=== PATIENT | male | born 1955 | race Caucasian/White ===

== ENCOUNTER → 2018-12-04 12:59 | Outpatient (CLI) | payer OTHER, SELFPAY ==
[2018-12-04 13:28] LABS: Bacteria Urine None Seen; RBC Urine None Seen (0-5/HPF); WBC Urine None Seen (0-5/HPF)
[2018-12-04 13:35] LABS: Add Manual Diff / Slide Review NO; Basophils Absolute Auto 100 /uL (0-100); Basophils Percent Auto 0.8 % (0-2); Eosinophils Absolute Auto 100 /uL (0-450); Eosinophils Percent Auto 1.7 % (2-4); Hematocrit 45.5 % (41-53); Hemoglobin 16.1 g/dL (13.5-17.5); Lymphocytes Absolute Auto 1200 /uL (1100-4500); Lymphocytes Percent Auto 15.5 % (25-40); Mean Corpuscular HGB Conc 35.3 % (30-36); Mean Corpuscular Hemoglobin 34.1 PG (26-34); Mean Corpuscular Volume 96.7 fL (80-100); Monocytes Absolute Auto 800 /uL (0-900); Monocytes Percent Auto 10.4 % (3-14); Neutrophils Absolute Auto 5600 /uL (1500-7000); Neutrophils Percent Auto 71.6 % (50-75); Platelet Count 265 X10^3/uL (150-400); Red Blood Cell Count 4.71 X10^6/uL (4.5-5.9); Red Cell Distribution Width 12.6 % (11.6-14.8); White Blood Cell Count 7.9 X10^3/uL (4.5-11.0)
[2018-12-04 13:44] LABS: Hemoglobin A1C% w Est Avg Glu 5.2 % (4.0-6.0)
[2018-12-04 14:13] LABS: Appearance Urine UA CLEAR; Bilirubin Urine UA NEGATIVE (NEGATIVE); Color Urine UA YELLOW; Glucose Urine UA NEGATIVE (Negative); Ketones Urine UA 1+ (NEGATIVE); Leukocyte Esterase Urine UA NEGATIVE (NEGATIVE); Nitrite Urine UA NEGATIVE (Negative); Occult Blood Urine UA NEGATIVE (Negative); Protein Urine UA NEGATIVE (Negative); pH Urine UA 6.5 (4.5-8.0)
[2018-12-04 14:15] LABS: BUN Creatinine Ratio 22.5 (6-22); Blood Urea Nitrogen 18 mg/dL (9-20); Calcium 10.5 mg/dL (8.4-10.2); Carbon Dioxide 27 mmol/L (22-32); Chloride 100 mmol/L (98-107); Estimated Glomerular Filt Rate > 60.0 mL/min (>60); Glucose 105 mg/dL (80-110); HEMOLYSIS 19 (0-50); Potassium 4.5 mmol/L (3.4-5.1); Sodium 139 mmol/L (137-145)
[2018-12-04 14:23] LABS: Culture Indicated Urine Cult Not Indicated
== END ==
PROVIDERS: Physician Assistant; Visit Provider Orthopaedic Surgery
DX: Z01.818 Encounter for other preprocedural examination (principal); Z01.812 Encounter for preprocedural laboratory examination; N39.9 Disorder of urinary system, unspecified; Z13.1 Encounter for screening for diabetes mellitus; R73.9 Hyperglycemia, unspecified
CPT/HCPCS: 36415; 80048; 81001; 83036; 85025

== ENCOUNTER 2019-02-15 06:15 | Inpatient (IN) | payer OTHER, SELFPAY ==
[2019-02-05 13:53] VITALS: BMI 32.1
[2019-02-15] VITALS (13 sets, daily range): BP systolic 114–133; BP diastolic 64–89; PULSE 72–104; RESP 12–18; TEMP 36–37.1; O2SAT 92–97; BMI 32.1
--- NOTE | 2019-02-15 | DI.RAD.S_ITS ---
PROCEDURE: XR PELVIS 1-2V INDICATIONS: INTER OP HIP ARTHROPLASTY TECHNIQUE: Intra-operative view of the pelvis and hip acquired. COMPARISON: None. FINDINGS: Bones: Intraoperative devices prior to placement of arthroplasty prostheses are in position. Acetabular cup may be slightly caudally rotated. Correlate with intraoperative mechanics. No fractures or suspicious bony lesions. Soft tissues: Overlying surgical retractors are present, along with other intraoperative changes. Surgical tacks of prior hernia repair are noted. IMPRESSION: 1. Intraoperative view of placement of right hip arthroplasty components. Dictated by: Jazmyn Major M.D. on 02/15/2019 at 10:41 Approved by: Jazmyn Major M.D. on 02/15/2019 at 10:44
--- NOTE | 2019-02-15 06:45 | DI.RAD.S_ITS ---
PROCEDURE: XR HIP W PEL IF DONE RT 2V INDICATIONS: post op right SELENE TECHNIQUE: AP pelvis and lateral view of the right hip acquired. COMPARISON: None. FINDINGS: Bones: Patient is status post right hip arthroplasty, with hardware components in expected positions. The hip joint appears congruent. The visualized bony structures appear intact. Soft tissues: Overlying postoperative changes are noted. No suspicious soft tissue densities. IMPRESSION: Post right total hip arthroplasty changes with anatomic right hip alignment. Dictated by: Conor De Jesus M.D. on 02/15/2019 at 11:42 Approved by: Conor De Jesus M.D. on 02/15/2019 at 11:42
[2019-02-15] MEDS: LACTATED RINGERS 1,000 ML 42 ML IV ×2 (07:00→09:34)
[2019-02-15] MEDS: ACETAMINOPHEN 325 MG TABLET 975 MG PO (07:06)
[2019-02-15] MEDS: CELECOXIB 200 MG CAPSULE PO (07:06)
[2019-02-15] MEDS: VANCOMYCIN 1,000 MG/200 ML PIGGYBACK 200 MG IV (07:06)
[2019-02-15] MEDS: PREGABALIN 75 MG CAPSULE PO (07:06)
[2019-02-15] MEDS: CEFAZOLIN 2 GM/100 ML FROZ.PIGGY IV ×2 (08:03→16:15)
[2019-02-15] MEDS: TRANEXAMIC ACID 1,000 MG VIAL 2000 MG INJ ×2 (08:19→10:27)
--- NOTE | 2019-02-15 08:37 | SUR.OPER ---
Lateral on padded OR bed. Gel axillary roll. Arms secured on padded armboard with pillow supporting top arm. Padded hip positioner braces x4 - anterior and posterior chest and pelvis. Additional gel pad used anterior pelvis. Gel pad under bottom leg from knee to foot and secured with tape over sheet.
[2019-02-15] MEDS: BUPIVACAINE 0.25% W/ EPI (PF) 10 ML VIAL 60 ML INJ (08:41)
[2019-02-15] MEDS: BUPIVACAINE LIPOSOME 266 MG/20 ML VIAL INJ (08:42)
--- NOTE | 2019-02-15 11:02 | P.OP_ITS ---
Operative Date/Time/Diagnoses Date of procedure: 02/15/19 Time of procedure: 11:35 Pre-op diagnosis: right hip OA Post-op diagnosis: same Procedure & Clinicians Procedure: Right total hip arthroplasty Same procedure as scheduled: Yes Indications: The patient has had progressively worsening right hip pain with radiographic changes consistent with arthritis. Non-operative management has failed and the patient has requested total hip replacement. The risks, benefits and alternatives to surgery were discussed with the patient prior to proceeding. Risks discussed included, but were not limited to, failure to relieve pain, leg length discrepancy, dislocation, stiffness, infection, nerve damage, deep venous thrombosis, pulmonary embolism, stroke, coma, heart attack, permanent paralysis and , as well as the potential need for eventual revision of the prosthetic. Surgeon: Rosa Seay [employer] Specials: Stacy Gomez Anesthesia Type: General and Spinal Operative Notes Findings: Severe right hip arthritis, good stability, good bone Closure Type: primary Specimen(s): none sent Prosthetic devices, grafts, tissues, transplants, or devices: Seay and Nephew 58 mm R3 cup, 36 x 58 mm liner, size 8 high offset anthology stem 36 mm +0 head Applied: drain(s) Estimated Blood Loss (mL): 250 Blood products transfused: none Procedure in detail: The patient was seen in the pre-operative area, where the patient identified the right hip as the operative site and this was marked with my initials. The patient received pre-operative antibiotics and was taken to the operating room and placed on the operative table in the left lateral decubitus position after satisfactory anesthesia. A redrying machine operator out was performed. The right leg was prepared from the ankle to the iliac crest with ChloroPrep in the usual fashion and draped through sterile drapes. The hip was approached through an approximately 20 cm incision centered over the greater trochanter and curving gently posteriorly as it went proximally. This was carried sharply to the fascia keysha, which was divided and retracted with a self retaining retractor. The trochanteric bursa was excised with care being taken to avoid the sciatic nerve, which was identified and protected throughout the case. The short external rotators were incised and the capsulomuscular flap was raised and tagged for later repair. The hip was dislocated, and a femoral neck osteotomy performed approximately 15 mm above the lesser trochanter. Retractors were placed around the femur. The canal was opened with a box cutting osteotome, followed by a T handled reamer and a lateralizing reamer. The chili pepper broach was then used, followed by sequential broaching until there was good stability of the broach in the femur. Retractors were placed to expose the acetabulum. The labrum and central soft tissues were removed. Reaming was performed initially going up in 2 mm increments, then 1 mm increments until good bite was obtained with an odd sized reamer. The cup 1 mm larger than the last reamer was then inserted using the appropriate anteversion guides. A trial neutral liner was placed. The broach was placed in the canal. A trial head and neck were then placed and the hip relocated and checked for leg length and stability. An intraoperative film confirmed the component position and no evidence of fracture. The patient was stable in the position of sleep, of squatting, and could be put through a range of motion with 45 degrees internal rotation without dislocation. At 90 degrees flexion, internal rotation to 70 was possible before dislocation. This was felt to be satisfactory and the appropriate components were opened, and the trials were removed. The acetabular liner was impacted into position. The final stem was then impacted into the prepared femoral canal. A brief Betadine soak was performed while trialing with head options. The hip was meticulously irrigated with normal saline. Finally the femoral head was impacted onto the stem. The acetabulum was cleared of all material and the hip relocated one final time. The capsulomuscular flap was then repaired to the greater trochanter though an awl hole using the tag sutures. The short external rotators were repaired with a nonabsorbable suture. A deep drain was placed and brought out anteriorly. The fascia keysha was closed with Vicryl. The subcutaneous layer was closed with barbed sutures and SteriStrips. An Aquacel Ag dressing was applied and the patient was taken to recovery having tolerated the procedure well. Complications: none Post-operative Condition: stable Disposition: Acute Care Plan for aftercare: The patient will be maintained on a standard total hip replacement protocol with weight bearing as tolerated and posterior hip precautions. The patient will receive Aspirin and sequential compression devices for DVT prophylaxis. The patient will be discharged home when safe for the home environment.
--- NOTE | 2019-02-15 11:02 | PM.PREOP ---
Pre-operative Note Interval Note History & Physical reviewed/Exam performed by Physician: Yes Changes to H&P: No
[2019-02-15] MEDS: LACTATED RINGERS 1,000 ML 125 ML IV ×2 (12:00→19:49)
--- NOTE | 2019-02-15 13:20 | CM.DANOTE ---
DCP: Case received, EMR reviewed and met with patient. , Boaz, also present in room. Introduced self and role. Was able to converse with patient and spouse and obtain baseline health and activity information. DCP assessment completed with information currently available. Patient is a 63 year old male who admitted early this morning to the care of the orthopedic team. PCP: Is looking into [facility], or [facility] on the [place]. Payer: confirmed: [facility]. Patient came to the hospital for a surgical procedure. He had right total hip arthroplasty. Patient has had history of chronic right hip pain secondary to osteoarthritis. Met with patient in room. He is alert and oriented, sitting up in bed having lunch. , Boaz, present in room. Robbin pizarro Has not yet worked with P.T. Patient is independent, had been using a cane prior to surgery, but just obtained a walker. Stated that him an his are between houses, just sold their home. Stated that there is only one step to enter home. He already has outpatient P.T. set up. P: DCP to continue to follow. He will be working with P.T. He should be able to go home when medically stable and cleared by P.T. Franchesca Avila RN/Machine Welder
--- NOTE | 2019-02-15 14:52 | PT.IIE ---
Current Diagnoses Unilateral primary osteoarthritis, right hip (02/15/19) Surgery Performed Operation Date: 02/15/19 07:45 Actual Procedures p Total Hip Arthroplasty(Right) - Rosa Seay MD Surgical History (Last Updated 02/05/19 @ 14:10 by Angelique Maynard RN) H/O inguinal hernia repair (Acute) H/O vasectomy (Acute) History of tonsillectomy and adenoidectomy (Acute) Hx of cosmetic surgery (Acute) Hx of umbilical hernia repair (Acute) Status post Mohs surgery (Acute ~2018) Medical History (Last Updated 02/05/19 @ 14:10 by Angelique Maynard RN) Bronchitis (Acute) Heartburn (Acute) Osteoarthritis (Acute) Traumatic cerebral hematoma (Acute) Physical Therapy Inpatient Evaluation/Re-Eval M1 PT/OT-IP Prior Functional Status Start: 02/15/19 16:13 Freq: NEEDED Status: Active Protocol: Document 02/15/19 14:52 AB (Rec: 02/15/19 16:47 AB [id number]) Medical Review Prior Functional Status Medical History Reviewed Yes Communication able to make needs known Mobility and Gait pt stated that he is modified independent with all mobilities and ambulation without AD but occasionally uses a SPC Social History Household Members spouse Living Arrangements House Number of Floors (Floors) One Floor Number of Stairs To Enter/Railing? 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 M2 PT-IP Current Condition Start: 02/15/19 16:13 Freq: NEEDED Status: Active Protocol: Document 02/15/19 14:52 AB (Rec: 02/15/19 16:47 AB [id number]) Physical Therapy Current Condition Current Condition Evaluation Date 02/15/19 Treatment Diagnosis s/p SELENE posterior approach; difficulty in walking Onset Date 02/15/2019 Precautions Posterior Hip Precautions No Hip Flexion > 90 degrees,No Hip Internal Rotation,No Hip Adduction Weight Bearing Status Weight Bearing Status Weight Bear as Tolerated M3 PT-IP Subjective Start: 02/15/19 16:13 Freq: NEEDED Status: Active Protocol: Document 02/15/19 14:52 AB (Rec: 02/15/19 16:47 AB [id number]) Subjective Physical Therapy Visit Type Type Initial Evaluation Visit Start Time 14:52 Visit Stop Time 15:42 Total Visit Minutes 50 Number of APPEALS ASSISTANT Visits 0 Physical Therapy Visit Comments Patient Comments pt agreeable to do PT Therapy Pain Assessment Pain Present Pain Present Denied Pain M4 PT-IP Mobility and Gait Start: 02/15/19 16:13 Freq: NEEDED Status: Active Protocol: Document 02/15/19 14:52 AB (Rec: 02/15/19 16:47 AB [id number]) PT-Bed Mobility Assessment Supine to Sit Supine to Sit Standby Assistance PT-Transfer Assessment Sit to and From Stand Sit to and from Stand Contact Guard Assistance,1 Person Assistance,Use of Upper Extremities Equipment Transfer Assistive Device Gait Belt,Front Wheeled Walker Orthotic/Prosthetic Devices or Brace: No Transfers Transfer Destination Chair Transfer Technique ambulated using FWW Transfer Ability Level of Assist Contact Guard Assistance,1 Person Assistance Comments Mobility Comments pt supine in bed and agreeable to get up. reviewed hip precautions with pt. BP supine: 119/79. O2 sat 90-92%. educated pt to take deep breaths in between activities. pt completed supine to sit SBA with HOB elevated. pt stated that he puts in pillows at home to keep his head up. pt was able to sit on EOB SBA without any complaints. completed sit to stand CGA and cues. pt ambulated in room ~ 50 ft using FWW CGA. pt agreed to sit up on the chair and positioned on the chair. pt stated that he feels a little lightheaded and sweaty. BP checked: 113/72. O2 sat: 95% table and call light placed next to pt. Pt has a FWW that he borrowed but is too short for pt and has rubber stoppers on the back which make FWW to catch on the floor. educated pt on safety and need for another walker. pt agreed and stated that there is a place that they can borrow a FWW and will let his know. Gait Assessment Gait Gait Assistance Required: Contact Guard Assist Distance (Feet) 50 Able to Maintain Weight Bearing Status Yes During Gait Assistive Devices Assistive Device Gait Belt,Front Wheeled Walker Orthotic/Prosthetic Devices or Brace: No Gait Deviations General Gait Pattern Antalgic,Decreased Stride Length,Decreased Feet Clearance Factors Limiting Gait Function Factors Limiting Gait Function Decreased Activity Tolerance, Decreased Strength,Poor Balance Comments Gait Comments pls refer to mobility section for details PT-Balance Assessment Sitting Balance and Reactions Static Sitting Balance Ability Good Dynamic Sitting Balance Ability Good Standing Balance and Reactions Static Standing Balance Ability Fair Dynamic Standing Balance Ability Fair Device Used FWW M5 PT-IP Objective Assessments Start: 02/15/19 16:13 Freq: NEEDED Status: Active Protocol: Document 02/15/19 14:52 AB (Rec: 02/15/19 16:47 AB [id number]) Orientation Orientation/Cognition Level of Alertness Alert Orientation Name,Age,Place,Situation Language Function Ability No Deficits Noted Safety Awareness Understands Safety Issues Memory Description No Deficits Noted Gross Range of Motion Lower Extremity ROM Assessment Within Functional Limits Strength Lower Extremity Strength Assessment Right Impaired Hip 3+/5 Knee 4-/5 Coordination Assessment Gross Coordination Gross Coordination WNL Sensation Assessment Sensation Gross Sensation WNL Muscle Tone Muscle Tone WNL Yes M6 PT-IP Treatment Start: 02/15/19 16:13 Freq: NEEDED Status: Active Protocol: Document 02/15/19 14:52 AB (Rec: 02/15/19 16:47 AB [id number]) Physical Therapy Treatment Exercises Exercises Heel Slides Education Education Provided Precautions,Weight Bearing Status,Post-Op Packet,Safety M7 PT-IP Assessment and Plan Start: 02/15/19 16:13 Freq: NEEDED Status: Active Protocol: Document 02/15/19 14:52 AB (Rec: 02/15/19 16:47 AB [id number]) PT Summary Assessment and Plan Potential Rehabilitation Potential Good Status of Condition at Evaluation Stable Summary Impairments Pain,ROM,Strength,Balance,Bed Mobility,Transfers,Gait, Activity Tolerance Assessment Summary pt requiring CGA with mobility and plans to go home with spouse to assist him. pt stated that his has been taking care of her mom that is disabled to knows how to assit him. will have to conduct caregiver training when appropriate and complete stair training. Goals Bed Mobility Goal Independent Transfer Goal Independent,Front Wheeled Walker Gait Goal Independent,Front Wheel Walker Gait Distance 200 Other Goals up/down 1 step using FWW SBA Days to Meet Goals 3 Frequency of Treatment Frequency Of Treatment Twice a Day Treatment Plan Physical Therapy Treatment Plan Bed Mobility Training,Transfer Training,Gait Training, Therapeutic Exercise,Balance Retraining,Post Op Education, Discharge Planning,Hot or Cold Pack,Neuromuscular Re-ed, Coordination Retraining,Manual Therapy Other Recommendations and Next Treatment ambulation, stair climbing, Focus caregiver training if appropriate Recommendations To Nursing Amount of Assist Needed 1 Person Assist Discharge Recommendations PT Discharge Recommendations Home with Assistance, Outpatient PT Equipment Needed for Home Before FWW: f/u if spouse was able to Discharge borrow one for pt
[2019-02-15] MEDS: ACETAMINOPHEN 325 MG TABLET 650 MG PO ×2 (14:58→21:19)
[2019-02-15] MEDS: IBUPROFEN 400 MG TABLET PO ×2 (14:58→21:19)
--- NOTE | 2019-02-15 16:34 | PC.NURSE ---
Addendum entered by Misa Stanley R.N. 02/15/19 22:57: Resting quietly in bed with eyes closed. No signs of distress or discomfort. Addendum entered by Misa Stanley R.N. 02/15/19 19:45: Pt unable to void and states feels no urge to void. Bladder scanned for 777 cc's. Explained to pt rationale behind catheterization. With pt verbal consent, pt was straight cathed for 1000 cc's dark yellow urine. Taking oral fluids well. Will continue to monitor. Denies need for any other pain meds to treat right hip. States scheduled ibuprofen and tylenol are managing pain well. Original Note: Pt up with P.T. in room and now in recliner. States falling asleep in chair and would like to get into bed. Assist x 1 to bed. Denies pain. Observes hip precautions appropriately. Right posterior aquacel dressing dry and intact with ice to site. Pillow supporting RLE. BL calf scd's replaced. Palpable pedal pulses BL. Denies nausea although bowel tones are quiet at this assessment. Continuous pulse oximeter in place with 02 sats on room air 94%. Spouse present at bedside. Admits to full sensation to BL LE's, but denies pain.
[2019-02-15] MEDS: ASPIRIN EC 81 MG TABLET PO (21:18)
[2019-02-15] MEDS: DOCUSATE 100 MG CAPSULE PO (21:18)
[2019-02-16] MEDS: IBUPROFEN 400 MG TABLET PO ×4 (00:26→12:44)
[2019-02-16] MEDS: CEFAZOLIN 2 GM/100 ML FROZ.PIGGY IV (00:26)
--- NOTE | 2019-02-16 01:39 | PC.NURSE ---
Addendum entered by Vilma Vivas R.N. 02/16/19 06:27: CORE WORKER reports patient spitting up coffee ground type material. When went into room patient had small amount dark brown mucous on mouth/chin. States he has been burping up small amounts but denies any abdominal pain/tenderness or nausea. Will monitor and discuss use of Ibuprofen with MD/PA when rounding. Addendum entered by Vilma Vivas R.N. 02/16/19 02:45: Voided another 50cc light yellow urine then began complaining of nausea but without emesis; medicated with Zofran and provided with gingerale per patient request. Addendum entered by Vilma Vivas R.N. 02/16/19 02:23: Successful in urinating 200cc urine. Original Note: Patient is alert and oriented. Breath sounds CTA with RA sat of 93%. HRR. Denies nausea. BT present and states he has been passing flatus. Unable to void post-op so had in/out cath at 1946 for 1000cc and has not urinated since that time; continue to monitor and intervene if needed. Able to move self in bed. Assisted to bathroom with walker and 1 assist. Dressing to right hip is CDI; hemovac is intact and compressed. CMS intact. Does state he sprained toes of right foot a couple days ago; denies pain/numbness. Wearing bilateral calf SCD's. Fall risk score is moderate and bed alarm is activated
[2019-02-16] MEDS: ONDANSETRON 4 MG/2 ML INJ IV (02:42)
[2019-02-16 06:42] LABS: Hematocrit 41.5 % (41-53); Hemoglobin 13.9 g/dL (13.5-17.5)
[2019-02-16 08:00] VITALS: BP 115/67; PULSE 82; RESP 16; TEMP 37.6; O2SAT 95
[2019-02-16] MEDS: ASPIRIN EC 81 MG TABLET PO (08:44)
[2019-02-16] MEDS: ACETAMINOPHEN 325 MG TABLET 650 MG PO (08:44)
[2019-02-16] MEDS: DOCUSATE 100 MG CAPSULE PO (08:44)
[2019-02-16] MEDS: SODIUM CHLORIDE 0.9% FLUSH 10 ML IV (08:44)
--- NOTE | 2019-02-16 09:04 | PC.NURSE ---
Pts aquacel dressing is cdi, with drain in place putting out bloody drainage. CMS wnl and ppx2. He states that his pain level is a 3/10. Tylenol given and ibuprofen. Patient is planning on working with physical therapy and then discharging home to tuesday [facility].
--- NOTE | 2019-02-16 10:29 | PM.PNPO.1 ---
Subjective Subjective Date Patient Seen: 02/16/19 Time Patient Seen: 10:30 Interval history: POD 1 s/p total hip arthroplasty by Dr. Seay. Patient is doing well. Complains of minimal pain in hip. Pain well managed with ibuprofen, tylenol. Ambulating on own. Has not mobilized with PT. Voiding without difficulty. Denies fever, chills, chest pain, shortness of breath, nausea, vomiting. Exam Vital Signs (past 8 hours): Oxygen Delivery Method Room Air Oxygen Flow Rate 0 Narrative Exam Narrative: 63 year old male is laying comfortably in bed, in no apparent distress. A&Ox3. Dressing CDI, SCDs, hemovacc in place. Sensory function grossly intact to light touch in LE bl. Able to actively dorsiflex/ plantar flex bl. Dorsalis pedis 2+ bl. Calves warm, soft, compressible, non tender to palpation. Objective Labs Result Diagrams: 02/16/19 05:50 Labs: Laboratory Results - last 24 hr 02/16/19 05:50 Hgb 13.9 Hct 41.5 Assessment & Plan Post-op Postoperative Procedures: Procedures Operation Date: 02/15/19 07:45 Actual Procedures Side Surgeon p Total Hip Arthroplasty Right Rosa Seay MD Postoperative status: doing well Postoperative plan: discharge Postoperative plan narrative: Discharge today pending PT clearance continue current pain medication - has oxycodone prescription at home outpatient - ASA 81mg BID for dvt prophylaxis Continue SCDs Mobilize with PT Time Spent With Patient Time with patient: less than 15 minutes Quality VTE Deep Vein Thrombosis/Pulmonary Embolism Present on Admission: No
[2019-02-16] MEDS: OXYCODONE IR 5 MG TABLET PO (12:44)
== END 2019-02-16 13:06 | disposition home or self-care (01) | DRG 470 ==
PROVIDERS: Admitting Provider Orthopaedic Surgery; Visit Provider Orthopaedic Surgery
PROC: 0SR90JZ Replacement of Right Hip Joint with Synthetic Substitute, Open Approach (ICD-10-PCS; CPT 27130; principal; 2019-02-15 07:45)
DX: M16.11 Unilateral primary osteoarthritis, right hip (principal); Z87.891 Personal history of nicotine dependence
CPT/HCPCS: 36415; 72170; 73502; 85014; 85018; 97161; C1776; C9290; J0690; J1100; J2250; J2274; J2405; J2704; J3010

== ENCOUNTER 2021-06-30 09:55 | Day surgery (SDC) | payer OTHER, SELFPAY ==
[2019-02-15 14:00] VITALS: BMI 32.1
--- NOTE | 2021-06-30 | PATH_ITS ---
[facility] Accession Number: [id number] No. of containers..01 Tissue . 01 Material submitted: . colon - SIGMOID . 01 Diagnosis: Sigmoid Colon, Biopsy: Hyperplastic polyp. MRV 07/03/2021 1217 Local . 01 Comment: . . . . 01 Electronically signed: . Colin Holm MD, PhD, Pathologist NPI- [id number] . 01 Gross description: . SIGMOID: Received in formalin is 1 fragment(s) of sinha, soft tissue measuring 0.3 x 0.3 x 0.2 cm submitted entirely in 1 cassette(s) /CPE 07/01/2021 0823 Local . 01 Pathologist provided ICD-10: K63.5 . 01 CPT . 082388 Specimen Comment: A courtesy copy of this report has been sent to [phone] Performed at: 01 [facility] [address] [place] [address], [place], [place] [id number] MD Santiago Frias MD Phone: [phone]
[2021-06-30 10:16] VITALS: BMI 30.9
[2021-06-30] MEDS: LACTATED RINGERS 1,000 ML 200 ML IV (10:25)
[2021-06-30 10:26] VITALS: BP 154/88; PULSE 94; RESP 16; TEMP 36.6; O2SAT 99
--- NOTE | 2021-06-30 11:14 | PM.HP.1 ---
History of Present Illness History of Present Illness Date Patient Seen: 06/30/21 Time Patient Seen: 11:14 Chief complaint: SDC Narrative: The patient presents for colorectal screening. They have never had any previous examination for such. No personal or family history of colon cancer. On further history denies any recent gastrointestinal symptoms. No nausea, vomiting, abdominal pain, loss of appetite, unexplained weight loss, change in bowel habits, diarrhea, constipation, melena, hematochezia, or bright red blood per rectum. Patient History Medical History Bronchitis Heartburn Osteoarthritis Traumatic cerebral hematoma Surgical History H/O inguinal hernia repair H/O vasectomy History of tonsillectomy and adenoidectomy Hx of cosmetic surgery Hx of umbilical hernia repair Status post Mohs surgery (~2018) Family & Social History Social History: household members spouse Tobacco & Substance use: Tobacco type cigarettes,pipe,cigars Smoking Status Former smoker alcohol intake current alcohol intake frequency 3 or more drinks per day Substance Use Type does not use Meds Home Medications and Allergies Allergies Allergy/AdvReac Type Severity Reaction Status Date / Time bee venom protein (honey bee) Allergy Intermediate swelling, Verified 02/15/19 06:51 trouble breathing Exam Vital Signs (past 8 hours): - 06/30/21 10:26 Temperature 98 F Pulse Rate 94 H Respiratory Rate 16 Blood Pressure 154/88 H Pulse Oximetry 99 Oxygen Delivery Method Room Air Narrative Exam Narrative: GENERAL: Adult male in no apparent distress HEENT: No scleral icterus CV: Regular rate, no peripheral edema LUNGS: No increased work of breathing. Patient speaks in full sentences without oxygen support. ABDOMEN: Soft, non-tender, non-distended NEURO: Nonfocal, normal strength throughout, Assessment & Plan Assessment & Plan narrative: The patient requires colorectal screening and colonoscopy is recommended. Technical details were discussed. Risks, benefits, alternatives explained. Risks including but not limited to myocardial infarction, aspiration, bleeding, pain, missed lesion, incomplete examination, need for further radiographic studies, colonic perforation, and need for major abdominal surgery were discussed. All questions were answered to their satisfaction, and they are in agreement with this plan. Time Spent With Patient Critical Care time: I spent a total of [] minutes of critical care time on this patient's care today; this time is exclusive of procedural time.
--- NOTE | 2021-06-30 11:48 | PM.OP.COLON ---
Operative Date/Time/Diagnoses Date of procedure: 06/30/21 Time of procedure: 11:49 Pre-op diagnosis: Screening Post-op diagnosis: same Procedure & Clinicians Study performed: Colonoscopy and polypectomy Same procedure as scheduled: Yes Indications: Screening Surgeon: Johnny Mccarthy Procedure Notes Procedure in detail: Medications: Conscious sedation using 8 mg IV midazolam and 200mcg IV of fentanyl The history and physical was performed/updated and the patient is ASA class is 1. The procedure was discussed in detail with the patient. Potential risks complications including infection, bleeding, missed diagnosis, perforation, need for surgery, and were explained. Their questions were answered and informed consent was obtained. Patient was brought to the procedure room and placed standard monitoring equipment. The patient's vital signs were monitored continuously throughout the entire procedure. Prior to starting time-out was performed. The patient was placed in the left lateral recumbent position. Procedural sedation was administered. Examination began with a thorough inspection of the perianal area there was no evidence of fissures, fistulae, external hemorrhoids or cutaneous malignancy. The colonoscopy scope was then placed into the anal canal and was advanced to the cecum, which was identified by the ileocecal valve and the confluence of the taenia. The scope was then slowly withdrawn examining colon thoroughly in all directions, irrigating it of any residual stool. FINDINGS 1. Sigmoid colon polyp 5 mm removed with biopsy forceps 2. Diverticulosis The patient tolerated the procedure well. They will be discharged once criteria are met. The prep was of good/excellent quality. The withdrawl time was 6 minutes. The sedation time was 24 minutes. Specimen(s): other (Sigmoid colon) Complications: none Impression: Colonic polyp Post-procedure Recommendations: Colonoscopy in 5 years Disposition: same day surgery
[2021-06-30] MEDS: fentaNYL 250 MCG/5 ML INJ IV (11:49)
[2021-06-30] MEDS: MIDAZOLAM 5 MG/5 ML VIAL IV (11:50)
[2021-06-30 11:53] VITALS: BP 159/103; PULSE 101; RESP 16; TEMP 36.9; O2SAT 96
[2021-06-30 11:58] VITALS: BP 131/87; PULSE 90; RESP 16; O2SAT 96
[2021-06-30 12:03] VITALS: BP 136/89; PULSE 87; RESP 16; O2SAT 95
[2021-06-30 12:07] VITALS: BP 130/81; PULSE 88; RESP 16; TEMP 36.3; O2SAT 14
== END 2021-06-30 12:28 | disposition home or self-care (01) ==
PROVIDERS: PCP Specialist; Referring Provider Surgery; Visit Provider Surgery
PROC: 0DJD8ZZ Inspection of Lower Intestinal Tract, Via Natural or Artificial Opening Endoscopic (ICD-10-PCS; CPT 45378; principal; 2021-06-30 11:00)
DX: Z12.11 Encounter for screening for malignant neoplasm of colon (principal); K57.30 Diverticulosis of large intestine without perforation or abscess without bleeding; K63.5 Polyp of colon
CPT/HCPCS: 45380; 99152; J2250; J3010